=== PATIENT | male | born 1990 | race African-American/Black ===

== ENCOUNTER 2023-10-21 06:16 | Emergency (ER) | payer OTHER ==
[~2023-10-21] VITALS: Ht 190.5 cm; Wt 101.0 kg
[2023-10-21 08:35] LABS: BASOPHILS % 0.3 % (0.0-2.0); EOSINOPHILS % 0.1 % (0.0-5.0); HEMATOCRIT. 43.4 % (42.0-52.0); HEMOGLOBIN. 14.8 g/dL (14.0-18.0); LYMPHOCYTES % 13.4 % (20.0-50.0); MEAN CORPUSCULAR HEMOGLOBIN 29.8 pg (28.0-32.0); MEAN CORPUSCULAR HGB CONC 34.2 g/dL (31.0-37.0); MEAN CORPUSCULAR VOLUME 87.1 fL (80.0-94.0); MEAN PLATELET VOLUME 7.5 fl (7.4-10.4); MONOCYTES % 4.4 % (2.0-8.0); NEUTROPHILS % 81.8 % (40.0-76.0); PLATELET 387 x1000/uL (130-400); RED BLOOD CELL COUNT 4.98 mill/uL (4.7-6.1); RED CELL DISTRIBUTION WIDTH 13.4 % (11.6-14.6); WHITE BLOOD COUNT 14.2 x1000/uL (4.5-11.0)
[2023-10-21 08:37] LABS: ALANINE AMINOTRANSFERASE 34 IU/L (10-49); ALBUMIN 5.2 g/dL (3.2-4.8); ASPARTATE AMINOTRANSFERASE 15 IU/L (<34); BILIRUBIN TOTAL 0.9 mg/dL (0.1-1.0); CALCIUM 10.2 mg/dL (8.7-10.4); CARBON DIOXIDE 22 mEq/L (21-32); CHLORIDE 102 mEq/L (98-107); CREATININE 0.8 mg/dL (0.6-1.3); GLUCOSE 274 mg/dL (70-105); POTASSIUM 3.8 mEq/L (3.5-5.1); PROTEIN TOTAL 8.1 g/dL (6.0-8.3); SODIUM 136 mEq/L (136-145); UREA NITROGEN BLOOD 7 mg/dL (9-23)
[2023-10-21 08:38] LABS: ETHANOL BLOOD < 10 mg/dL (<10)
[2023-10-21 09:23] LABS: CLARITY URINE CLEAR (CLEAR); COLOR URINE YELLOW (YELLOW); GLUCOSE URINE 1+ (NEGATIVE); KETONES URINE 1+ (NEGATIVE); LEUKOCYTE ESTERASE URINE NEGATIVE (NEGATIVE); NITRITE URINE NEGATIVE (NEGATIVE); OCCULT BLOOD URINE NEGATIVE (NEGATIVE); PH URINE 6.5 (4.5-8.0); PROTEIN URINE NEGATIVE (NEGATIVE); SPECIFIC GRAVITY URINE 1.004 (1.005-1.030); UROBILINOGEN URINE 0.2 E.U./dL (0.2-1.0)
[2023-10-21 10:28] LABS: *AMPHETAMINES SCREEN URINE NEGATIVE (NEGATIVE); *BARBITURATES SCREEN URINE NEGATIVE (NEGATIVE); *BENZODIAZEPINES SCREEN URINE NEGATIVE (NEGATIVE); *COCAINE SCREEN URINE NEGATIVE (NEGATIVE); CANNABINOID URINE SCREEN NEGATIVE (NEGATIVE); ECSTASY MDMA SCREEN URINE NEGATIVE (NEGATIVE); METHADONE URINE SCREEN Neg (NEGATIVE); OPIATES URINE SCREEN NEGATIVE (NEGATIVE); PHENCYCLIDINE URINE SCREEN NEGATIVE (NEGATIVE)
[2023-10-21 11:50] LABS: SQUAMOUS EPITHELIAL CELL URINE RARE /lpf (RARE/1+)
[2023-10-21 11:51] LABS: RBC URINE NONE SEEN /hpf (0-2); WBC URINE 0-2 /hpf (0-2)
[2023-10-21 11:52] LABS: BACTERIA URINE NONE SEEN
[2023-10-21] MEDS: QUETIAPINE FUMARATE 50MG TABLET PO SCH ×2 (12:32→21:53)
[2023-10-21] MEDS ORDERED: SODIUM CHLORIDE 0.9% 1,000 ML IV ONE ×2 (13:00→19:00)
[2023-10-21] MEDS ORDERED: GLIPIZIDE XL 2.5MG TABLET PO ONE (16:30)
[2023-10-21] MEDS ORDERED: AMLODIPINE 5MG TABLET PO ONE ×2 (19:00→21:00)
[2023-10-22] MEDS ORDERED: MIDAZOLAM HCL 2 MG/2 ML VIAL IM ONE ×3 (00:45→12:15)
[2023-10-22] MEDS ORDERED: OLANZAPINE 10 MG/VIAL IM ONE (01:15)
[2023-10-22] MEDS ORDERED: MIDAZOLAM HCL 2 MG/2 ML VIAL IM NR (04:00)
[2023-10-22] MEDS ORDERED: ACETAMINOPHEN 325MG TABLET PO STA (09:46)
[2023-10-22] MEDS: QUETIAPINE FUMARATE 50MG TABLET PO SCH (09:48)
[2023-10-22] MEDS ORDERED: MIDAZOLAM HCL 2 MG/2 ML VIAL IV ONE (11:45)
[2023-10-22] MEDS ORDERED: GLIPIZIDE XL 2.5MG TABLET PO ONE (12:30)
[2023-10-22 13:13] VITALS: O2SAT 98
[2023-10-22] MEDS ORDERED: SODIUM CHLORIDE 0.9% 1,000 ML IV ONE (13:30)
[2023-10-22] MEDS ORDERED: AMLODIPINE 5MG TABLET PO ONE (15:15)
[2023-10-22] MEDS ORDERED: LORAZEPAM 1MG TABLET PO ONE (16:30)
[2023-10-22 17:40] VITALS: BP 158/104; PULSE 114; RESP 18; TEMP 98.6
== END 2023-10-22 19:35 ==
LOC: ER 06:16
DX: F79 Unspecified intellectual disabilities (principal); F41.9 Anxiety disorder, unspecified; F31.9 Bipolar disorder, unspecified; E11.9 Type 2 diabetes mellitus without complications; Z88.8 Allergy status to other drugs, medicaments and biological substances
CPT/HCPCS: 80053; 80305; 81003; 80320; 82962 ×2; 85025; 36415; 96360; 99285; 87426; 93005; 96361; 96372; Z7610 ×5; J7030 ×2; J3490; J2250; G0480